=== PATIENT | male | born 1980 | race Caucasian/White ===

== ENCOUNTER 2021-05-15 09:34 | Emergency (ER) | payer MEDICAID, OTHER ==
[~2021-05-15] VITALS: Ht 175.3 cm; Wt 72.7 kg
[2021-05-15 09:34] VITALS: BP 138/80
--- NOTE | 2021-05-15 10:02 | REP ---
INDICATION: rolled ankle COMPARISON: None. TECHNIQUE: AP, lateral, bilateral oblique views. FINDINGS: Moderate lateral swelling. Small fragments just below the fibular tip appear relatively well corticated and likely represent chronic changes related to old injury. No definite acute fracture or dislocation appreciated. Talar dome and ankle mortise are intact. IMPRESSION: Moderate lateral swelling. Changes as above suggest old injury. No obvious acute fracture or dislocation. <Electronically signed by Miguel Nguyen > 05/15/21 [id number]
== END 2021-05-15 10:47 | disposition home or self-care (01) ==
LOC: M ED 09:34 → EDSEX 09:34 → M ED 10:47
DX: S93.401A Sprain of unspecified ligament of right ankle, initial encounter (principal); Y92.009 Unspecified place in unspecified non-institutional (private) residence as the place of occurrence of the external cause; Y93.9 Activity, unspecified; Y99.9 Unspecified external cause status; W10.8XXA Fall (on) (from) other stairs and steps, initial encounter

== ENCOUNTER 2022-02-23 11:21 | Emergency (ER) | payer MEDICAID, OTHER ==
[~2022-02-23] VITALS: Ht 175.3 cm; Wt 72.7 kg
[2022-02-23 11:25] VITALS: BP 123/78
[2022-02-23] MEDS ORDERED: KETOROLAC 30 MG/ML 1ML VIAL IV ONE (12:50)
[2022-02-23] MEDS ORDERED: METOCLOPRAMIDE INJ 10MG/2ML VIAL (J2765 PER 1) IV ONE (12:50)
[2022-02-23] MEDS ORDERED: NS 1,000 ML IV ONE (12:50)
== END 2022-02-23 14:33 | disposition home or self-care (01) ==
LOC: M ED 11:21
DX: G43.909 Migraine, unspecified, not intractable, without status migrainosus (principal)
CPT/HCPCS: 70450; 96361; 96374; 99284; J1885; J2765

== ENCOUNTER → 2022-03-18 | Outpatient (REF) | payer OTHER | LOC: M LAB REF 18:52 | PROVIDERS: ATTEND Surgery | DX: K64.4 Residual hemorrhoidal skin tags (principal) ==

== ENCOUNTER 2022-07-03 05:50 | Emergency (ER) | payer OTHER ==
[~2022-07-03] VITALS: Ht 175.3 cm; Wt 77.3 kg
[2022-07-03 09:21] VITALS: BP 131/91
[2022-07-04] MEDS ORDERED: TEST200I14 IM (11:38)
== END 2022-07-03 09:24 | disposition home or self-care (01) ==
LOC: M ED 05:50
DX: S09.90XA Unspecified injury of head, initial encounter (principal); R22.31 Localized swelling, mass and lump, right upper limb; R11.0 Nausea; Y04.8XXA Assault by other bodily force, initial encounter; Y07.59 Other non-family member, perpetrator of maltreatment and neglect; Z87.891 Personal history of nicotine dependence

== ENCOUNTER 2022-07-04 11:21 | Emergency (ER) | payer OTHER ==
[~2022-07-04] VITALS: Ht 175.3 cm; Wt 77.3 kg
[2022-07-04 11:22] VITALS: BP 143/85
[2022-07-04] MEDS ORDERED: TEST200I14 IM (11:38)
== END 2022-07-04 14:33 | disposition home or self-care (01) ==
LOC: M ED 11:21
DX: M25.462 Effusion, left knee (principal); R51.9 Headache, unspecified; Y04.0XXA Assault by unarmed brawl or fight, initial encounter; Y92.410 Unspecified street and highway as the place of occurrence of the external cause; Y93.9 Activity, unspecified; Y99.9 Unspecified external cause status

== ENCOUNTER → 2022-08-11 | Outpatient (CLI) | payer OTHER ==
[~2022-08-11] MED LIST: TEST200I14 IM
== END ==
LOC: M OUTALCOH 09:28
PROVIDERS: ATTEND Psychiatry & Neurology Psychiatry
DX: Z13.30 Encounter for screening examination for mental health and behavioral disorders, unspecified (principal)

== ENCOUNTER → 2023-02-22 | Outpatient (CLI) | payer OTHER ==
[2023-02-22 14:41] LABS: HEMATOCRIT 52.2 % (42.0-52.0); HEMOGLOBIN 17.2 g/dl (13.5-17.5); MEAN CORPUSCULAR HEMOGLOBIN 28.6 pg (27.0-33.0); MEAN CORPUSCULAR VOLUME 86.9 fl (80.0-96.0); PLATELET COUNT, AUTOMATED 219 10^3/uL (150-450); RED BLOOD COUNT 6.01 10^6/uL (4.30-6.10); WHITE BLOOD COUNT 5.5 10^3/uL (4.0-10.0)
[2023-02-22 15:11] LABS: ALKALINE PHOSPHATASE 58 U/L (46-116); ALT/SGPT 20 U/L (7.0-40); AST/SGOT 12 U/L (<34); BILIRUBIN,TOTAL 0.4 MG/DL (0.3-1.2); BLOOD UREA NITROGEN 17 MG/DL (9-23); CALCIUM LEVEL 9.2 MG/DL (8.5-10.1); CARBON DIOXIDE LEVEL 30 MMOL/L (20-31); CHLORIDE LEVEL 103 MMOL/L (98-107); CHOLESTEROL LEVEL 152 MG/DL (<200); CHOLESTEROL RISK RATIO 3.69 (<5); CREATININE FOR GFR 0.86 MG/DL (0.70-1.30); GLOMERULAR FILTRATION RATE > 60.0 (>60); GLUCOSE, FASTING 78 MG/DL (60-100); HDL CHOLESTEROL 41.1 MG/DL (>40); LDL CHOLESTEROL 78.5 MG/DL (<100); NON-HDL-C 110.9 MG/DL; SODIUM LEVEL 138 MMOL/L (136-145); THYROID STIMULATING HORMONE 3.077 uIU/ML (0.55-4.78); TOTAL PROTEIN 7.4 G/DL (5.7-8.2); TRIGLYCERIDES LEVEL 162 MG/DL (<150)
[2023-02-22 15:12] LABS: TESTOSTERONE 868 NG/DL (241-827)
[2023-02-22 15:13] LABS: TOTAL 25(OH) VITAMIN D 30.7 NG/ML (20.0-100.0)
[2023-02-22 16:30] LABS: HEMOGLOBIN A1c 5.4 % (4.0-6.0)
== END ==
LOC: M RAD 12:31
PROVIDERS: ATTEND Family Medicine
DX: R53.83 Other fatigue (principal); I10 Essential (primary) hypertension; E03.9 Hypothyroidism, unspecified; M54.30 Sciatica, unspecified side

== ENCOUNTER → 2023-12-04 | Outpatient (CLI) | payer OTHER | LOC: M RAD 11:46 | PROVIDERS: ATTEND Otolaryngology | DX: D44.0 Neoplasm of uncertain behavior of thyroid gland (principal) ==

== ENCOUNTER 2025-09-29 09:40 | Day surgery (SDC) | payer OTHER ==
[~2025-09-29] VITALS: Ht 175.3 cm; Wt 76.2 kg
[2025-09-29] MEDS ORDERED: MIDAZOLAM INJ 2 MG/2 ML VIAL As Ordered ONE (11:45)
[2025-09-29] MEDS ORDERED: dexmedeTOMIDine (4 MCG/ML) 200 MCG/50 ML BTL As Ordered ONE (11:45)
[2025-09-29] MEDS ORDERED: dexAMETHasone 4 MG/ML 1 ML VIAL As Ordered ONE (11:53)
[2025-09-29] MEDS ORDERED: LIDOCAINE 2% 100 MG/5 ML SDV (FOR ANES.) As Ordered ONE (11:54)
[2025-09-29] MEDS ORDERED: ROCURONIUM BROMIDE 50MG/5ML VIAL As Ordered ONE (11:54)
[2025-09-29] MEDS ORDERED: SUGAMMADEX SODIUM 500 MG/5 ML VIAL As Ordered ONE (11:54)
[2025-09-29] MEDS ORDERED: ONDANSETRON 4MG/2ML VIAL As Ordered ONE (11:54)
[2025-09-29] MEDS ORDERED: ACETAMINOPHEN 1000MG/100ML IV BAG As Ordered ONE (12:04)
[2025-09-29] MEDS: COCAINE 4% 4 ML NASAL SOLUTION BTL As Ordered ONE (13:25)
[2025-09-29] MEDS: OXYMETAZOLINE 0.05% NASAL SPRAY As Ordered ONE (13:26)
[2025-09-29] MEDS: LIDOCAINE W/EPINEPHrine 1% 20 ML VIAL As Ordered ONE (14:03)
[2025-09-29] MEDS ORDERED: MORPHINE 2 MG/ML 1 ML VIAL IV PRN (14:30)
[2025-09-29] MEDS ORDERED: HYDROMORPHONE HCL 0.5 MG/0.5 ML SYRINGE IV PRN (14:30)
[2025-09-29] MEDS ORDERED: OXYMETAZOLINE 0.05% NASAL SPRAY PRN (15:15)
[2025-09-29] MEDS: ONDANSETRON 4MG/2ML VIAL IV ONE (15:35)
[2025-09-29 15:55] VITALS: BP 120/77; TEMP 97.7; O2SAT 96
== END 2025-09-29 16:15 | disposition home or self-care (01) ==
LOC: M SDC 09:40
PROVIDERS: ATTEND Otolaryngology
DX: J34.2 Deviated nasal septum (principal); J34.3 Hypertrophy of nasal turbinates; J30.2 Other seasonal allergic rhinitis; F12.10 Cannabis abuse, uncomplicated; G43.909 Migraine, unspecified, not intractable, without status migrainosus; Z79.899 Other long term (current) drug therapy; R06.83 Snoring
CPT/HCPCS: 30140; 30520; C9143; J0131; J1100; J2250; J2405; J3010